=== PATIENT | female | born 1980 | race African-American/Black ===

== ENCOUNTER 2016-10-01 11:05 | Emergency (ER) | payer OTHER ==
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
[2016-10-01] MEDS ORDERED: LEVOTHYROXINE PO (11:11)
[2016-10-01] MEDS ORDERED: ALBUTEROL NEB INH (11:11)
[2016-10-01] MEDS ORDERED: BIRTH CONTROL PILL (11:11)
[2016-10-01] MEDS ORDERED: LASIX PO (11:11)
== END 2016-10-01 12:30 | disposition home or self-care (01) ==
LOC: SED 11:05
DX: S39.92XA Unspecified injury of lower back, initial encounter (principal); R03.0 Elevated blood-pressure reading, without diagnosis of hypertension; J45.909 Unspecified asthma, uncomplicated; Z79.899 Other long term (current) drug therapy; E03.9 Hypothyroidism, unspecified; V43.62XA Car passenger injured in collision with other type car in traffic accident, initial encounter; Y92.410 Unspecified street and highway as the place of occurrence of the external cause
CPT/HCPCS: 72100; 99283